=== PATIENT | female | born 2000 | race African-American/Black ===

== ENCOUNTER 2020-02-18 09:07 | Emergency (ER) | payer OTHER, SELFPAY ==
--- NOTE | ~2020-02-18 | CT_ITS ---
EXAMINATION: CT abdomen pelvis w con DATE: 02/18/2020 13:06 INDICATION: Epigastric abdominal pain. TECHNIQUE: Computed tomography (CT) of the abdomen and pelvis was performed with 100 mL Omnipaque 350 intravenous contrast. Automated exposure control and iterative reconstruction technique were employe d. The dose-length product was 196.72 mGy-cm. COMPARISON: None. FINDINGS: The visualized portions of the lung bases are clear without pneumonia or pleural effusion. The heart size is normal. No pericardial effusion. The liver, gallbladder, spleen, pancreas, adrenal glands, and kidneys are normal. There are no dilated loops of bowel. The appendix is normal. There ar e no pathologically enlarged lymph nodes. There is no free intraperitoneal fluid. The bones are unrem arkable. IMPRESSION: 1. No etiology for the patient's symptoms. Reviewed, dictated and finalized at location A. ING CLERK
[2020-02-18 09:27] VITALS: BP 110/73; PULSE 110; RESP 16; TEMP 37.5; O2SAT 100
--- NOTE | 2020-02-18 09:35 | ED.ABDPAIN ---
HPI - Abdominal Pain General Chief Complaint: Unspecified Stated Complaint: sent by urgent care, rib pain Time Seen by Provider: 02/18/20 09:10 Source: patient and family Mode of arrival: ambulatory Limitations: no limitations History of Present Illness HPI narrative: Patient is a 19-year-old female who presents to emergency department for evaluation of epigastric abdominal pain for 3 days that has gradually worsened to include the right upper abdomen and epigastrium patient denies nausea fever chills patient was seen at urgent care referred to emergency department for further evaluation. Patient denies any URI symptoms sick contacts urinary symptoms vaginal discharge Related Data Home Medications Medication Instructions Recorded Confirmed lisdexamfetamine [Vyvanse] mg 02/18/20 Allergies Allergy/AdvReac Type Severity Reaction Status Date / Time No Known Allergies Allergy Verified 02/18/20 09:20 Review of Systems Review of Systems: All systems reviewed & are unremarkable except as noted in HPI and below PMFSH Social History Social History (Updated 02/18/20 @ 09:37 by Francisco Lau PA-C) Smoking status: Never smoker Gender identity (if verbalized by the patient): Female Exam Narrative: Exam Narrative: GENERAL: Well-appearing, well-nourished, and in no acute distress. HEAD: Normocephalic, atraumatic. EYES: PERRLA and EOMI. ENT: Nares clear, no rhinorrhea or epistaxis. Mucous membranes moist. NECK: Supple. No adenopathy or masses. CHEST: Clear to auscultation. No respiratory distress. No wheezes rales or rhonchi HEART: Regular rate and rhythm. No murmur heard. Normal peripheral pulses. ABDOMEN: Soft, epigastric tenderness to palpation remainder of abdomen nontender no rebound or guarding, nondistended EXTREMITIES: Normal range of motion. No edema. SKIN: Warm, dry, no rash. NEURO: No focal deficits. Alert and oriented x3. PSYCH: Normal mood and affect. Course GENERAL ASSIGNMENT REPORTER/PA Physician Supervision Patient evaluated on to have likely GI upset will be put on a antiacid with follow-up with GI for consideration EGD patient given reasons to return ABCs intact hemodynamically stable in no distress Reevaluation(s) Reevaluation #1: Patient in the room at this time noting that she continues to have 10 out of 10 pain of the abdomen will have a CAT scan to rule out more serious etiology for her symptoms at this time patient aware of this Date: 02/18/20 Time: 12:13 Vital Signs Vital signs: Vital Signs Temperature 99.5 F 02/18/20 09:27 Pulse Rate 110 H 02/18/20 09:27 Respiratory Rate 16 02/18/20 09:27 Blood Pressure 110/73 02/18/20 09:27 Pulse Oximetry 100 02/18/20 09:27 Temperature 99.5 F 02/18/20 09:27 Pulse Rate 97 02/18/20 12:08 Respiratory Rate 14 02/18/20 12:08 Blood Pressure 128/84 02/18/20 12:08 Pulse Oximetry 94 02/18/20 12:08 MDM - Abdominal Pain MDM Narrative Medical decision making narrative: Patient in the room in no distress aware of case findings treatment plan diagnosis will be discharged back to primary care with gastroenterology referral afebrile nontoxic-appearing no distress will be placed on an antiacid with likely gastritis or GI upset given dietary instructions provided with reasons to return Lab Data Result diagrams: 02/18/20 10:02 02/18/20 10:02 Labs: Lab Results 02/18/20 02/18/20 02/18/20 Range/Units 10:02 10:02 11:03 WBC 12.2 H (4.5-10.0) K/mm3 RBC 3.95 L (4.2-5.4) M/mm3 Hgb 9.8 L (12.0-15.0) g/dL Hct 31.4 L (37.0-47.0) % MCV 79.5 L (80-100) fl MCH 24.8 L (26-34) pg MCHC 31.2 L (32-36) g/dl RDW 15.4 H (11.5-14.5) % Plt Count 328 (150-375) k/mm3 MPV 9.0 (7.4-10.4) fl Immature Gran % (Auto) 0.5 (0-0.5) % Neut % (Auto) 85.2 H (45.5-73.1) % Lymph % (Auto) 6.2 L (18.3-44.2) % Drew % (Auto) 7.9 (2.6-8.5) % Eos % (Auto) 0.0 (0-4.4) % Baso % (Auto)
[2020-02-18] MEDS: LIDOCAINE HCL 2% VISC SOLN 15 ML UDC 20 ML PO (10:02)
[2020-02-18] MEDS: SODIUM CHLORIDE 0.9% IV 1,000 ML 999 ML IV CONT ×2 (10:02→13:23)
[2020-02-18] MEDS: FAMOTIDINE 20 MG/2 ML VIAL IV PUSH (10:03)
[2020-02-18] MEDS: MAG HYDROX/AL HYDROX/SIMETH 30 ML UDC PO (10:03)
[2020-02-18 10:13] LABS: Basophils Percent Auto 0.2 % (0.2-1.2); Hematocrit 31.4 % (37.0-47.0); Hemoglobin 9.8 g/dL (12.0-15.0); Immature Granulocyte Absolute 0.06 K/mm3 (0.00-0.031); Immature Granulocyte Percent A 0.5 % (0-0.5); Lymphocytes Absolute Auto 0.76 K/mm3 (0.9-3.2); Lymphocytes Percent Auto 6.2 % (18.3-44.2); Mean Corpuscular HGB Conc 31.2 g/dl (32-36); Mean Corpuscular Hemoglobin 24.8 pg (26-34); Mean Corpuscular Volume 79.5 fl (80-100); Monocytes Percent Auto 7.9 % (2.6-8.5); Neutrophils Absolute Auto 10.4 K/mm3 (1.3-6.7); Neutrophils Percent Auto 85.2 % (45.5-73.1); Platelet Count Result 328 k/mm3 (150-375); Red Blood Count 3.95 M/mm3 (4.2-5.4); Red Cell Distribution Width 15.4 % (11.5-14.5); White Blood Count 12.2 K/mm3 (4.5-10.0)
--- NOTE | 2020-02-18 10:15 | PC.NURSE ---
PT UNABLE TO PROVIDE URINE SAMPLE AT THIS TIME, ALERT AND REFUSING STRAIGHT CATH, WILL ATTEMPT MACIE.
[2020-02-18 10:25] LABS: Alanine Aminotransferase 7 U/L (4-35); Alkaline Phosphatase 107 U/L (45-116); Anion Gap 5 mmol/L (8-16); Aspartate Amino Transferase 25 U/L (14-36); Blood Urea Nitrogen 6 mg/dL (8-21); Calcium 9.1 mg/dL (8.9-10.7); Carbon Dioxide 30 mmol/L (22-30); Chloride 100 mmol/L (98-107); Estimated CRCL calculation 101 ml/min; Estimated Glomerular Filt Rate > 60; Glucose 100 mg/dL (65-105); Lipase 30 U/L (23-300); Potassium 3.6 mmol/L (3.4-5.0); Sodium 135 mmol/L (134-143)
[2020-02-18 11:15] LABS: Add Urine Microscopic? YES; Appearance Urine Clear (Clear); Bacteria Urine Trace /hpf; Bilirubin Urine Negative (Negative); Blood Urine 3+ (Negative); Color Urine Yellow (Yellow); Glucose Urine UA Negative (Negative); Ketones Urine 1+ mg/dL (Negative); Leukocyte Esterase Ur Negative LEU/UL (Negative); Mucus Urine Rare /lpf; Nitrate Urine Negative (Negative); Protein Urine Negative (Negative); RBC Urine >75 /hpf (0-2); Squamous Epithelial Cell Urine Occasional /hpf (Few); Urobilinogen Urine Negative mg/dL (<2.0)
[2020-02-18 11:19] VITALS: BP 118/75; PULSE 89; RESP 16; O2SAT 100
[2020-02-18 12:08] VITALS: BP 128/84; PULSE 97; RESP 14; O2SAT 94
[2020-02-18 13:46] VITALS: BP 118/65; PULSE 72; RESP 16; O2SAT 100
== END 2020-02-18 13:46 | disposition home or self-care (01) ==
PROVIDERS: Emergency Medicine Emergency Medical Services; Emergency Provider Emergency Medicine; PCP Pediatrics
DX: R10.13 Epigastric pain (principal)
CPT/HCPCS: 36415; 74177; 80053; 81001; 81025; 83690; 85025; 96361; 96365; 96375; 99284; A9270; J0131; J7030; Q9967

== ENCOUNTER → 2020-05-15 00:05 | Outpatient (CLI) | payer OTHER, SELFPAY ==
[2020-05-15 18:59] LABS: SARS-CoV-2 RNA PCR Negative
== END ==
PROVIDERS: PCP Pediatrics; Visit Provider Internal Medicine Gastroenterology
DX: Z01.812 Encounter for preprocedural laboratory examination (principal); Z20.822 Contact with and (suspected) exposure to COVID-19
CPT/HCPCS: C9803; U0003; U0005

== ENCOUNTER 2020-05-18 00:58 | Day surgery (SDC) | payer OTHER, SELFPAY ==
[2020-05-08 10:07] VITALS: BMI 18.9
[2020-05-18 09:03] VITALS: BP 108/77; PULSE 77; RESP 16; TEMP 36.2; O2SAT 100; BMI 19.5
--- NOTE | 2020-05-18 09:12 | WPDANESEPPF ---
Anes - Initial Pre Proc Eval Procedure: Operation Date: 05/18/20 10:00 Proposed Procedures p Esophagogastroduodenoscopy & Colonoscopy - Jhonny Jiang MD Date/Time: 05/18/20 09:12 Surgeon: Jhonny Jiang MD Pre Op Diagnosis: Abdominal Pain, TYREL Patient Data Age: 20 Gender: F Height: 5 ft 3 in Weight: 50.1 kg Last Vital Signs Temp 97.2 F L 05/18/20 09:03 Pulse 77 05/18/20 09:03 Resp 16 05/18/20 09:03 BP 108/77 05/18/20 09:03 Pulse Ox 100 05/18/20 09:03 Allergies Allergy/AdvReac Type Severity Reaction Status Date / Time No Known Allergies Allergy Verified 05/18/20 09:02 Home Medications Medication Instructions Recorded Confirmed Type lisdexamfetamine [Vyvanse] 40 mg PO DAILY 02/18/20 05/08/20 History sodium,potassium,mag sulfates 17.5 See Rx Instructions PO .COMPLEX 04/20/20 Rx gram-3.13 gram-1.6 gram oral soln #354 ml Patient hx anesthesia problems: none Family hx anesthesia problems: none PMFSH Past Medical History Medical History (Updated 05/18/20 @ 09:12 by Hugo Estrada MD) ADHD Anxiety Microcytic anemia Social History Social History (Updated 03/30/20 @ 14:31 by Aishwarya Ley CMA) Smoking status: Never smoker Alcohol intake: never Substance use: former Substance use type: marijuana Living arrangements: with family Gender identity (if verbalized by the patient): Female Spiritual care concerns: No Anes - Eval Final PreProcedure Day of Procedure 05/18/20 09:12 Patient weight: normal Heart: regular rate and rhythm Lungs: clear to auscultation Airway: Mallampati scale class II Neurological: alert and oriented Last oral intake: >/= 8 hours ASA classification: II Emergent: no Anesthetic plan: proceed Anesthesia type and monitoring: general GIVS and standard monitoring Informed Consent: The patient's anesthetic plan and its attendant risks and benefits were discussed with the patient/family/POA. Questions were solicited and answers provided to the satisfaction of the patient/family/POA.
[2020-05-18] MEDS: LACTATED RINGERS 1,000 ML 150 ML IV CONT (09:16)
--- NOTE | 2020-05-18 09:20 | PM.HPGS ---
History of Present Illness History of Present Illness Consent: Risks, benefits, and alternatives have been discussed and questions answered. Patient agrees to proceed with procedure. Chief complaint: Abdominal Pain, TYREL Narrative: Michelle Redd is a 20 year old female with intermittent abdominal pain, TYREL, CT scan negative, never had scopes. Constipation resolved. Review of Systems Constitutional: Constitutional: Denies headache(s) and Denies weakness Eyes: Eyes: Denies blurry vision ENT: Reports Normal hearing present, Denies headache(s) and Denies neck pain Cardiovascular: Cardiovascular: Denies chest pain and Denies dyspnea Respiratory: Respiratory: Denies dyspnea Gastrointestinal: Gastrointestinal: Reports no additional gastrointestinal complaints Genitourinary: Genitourinary: Denies dysuria Musculoskeletal: Musculoskeletal: Denies neck pain Integumentary/Breasts: Skin/Breast: Denies dry skin Neurologic: Reports Normal hearing present, Denies headache(s) and Denies weakness Psychiatric: Psychiatric: Denies anxiety Endocrine: Endocrine: Denies change in body appearance Hematologic/Lymphatic: Hematologic/Lymphatic: Denies easy bleeding Allergic/Immunologic: Allergic/Immunologic: Denies urticaria PMF Past Medical History Medical History (Updated 05/18/20 @ 09:20 by Jhonny Jiang MD) ADHD Anxiety Microcytic anemia Social History Social History (Updated 03/30/20 @ 14:31 by Aishwarya Ley CMA) Smoking status: Never smoker Alcohol intake: never Substance use: former Substance use type: marijuana Living arrangements: with family Gender identity (if verbalized by the patient): Female Spiritual care concerns: No Meds Home Medications and Allergies Home Medications Medication Instructions Recorded Confirmed Type lisdexamfetamine [Vyvanse] 40 mg PO DAILY 02/18/20 05/08/20 History sodium,potassium,mag sulfates 17.5 See Rx Instructions PO .COMPLEX 04/20/20 Rx gram-3.13 gram-1.6 gram oral soln #354 ml Allergies Allergy/AdvReac Type Severity Reaction Status Date / Time No Known Allergies Allergy Verified 05/18/20 09:02 Vital Signs Vital Signs - 24 hr 05/18/20 09:03 Temperature 97.2 F L Pulse Rate 77 Respiratory Rate 16 Blood Pressure 108/77 Pulse Oximetry 100 Exam Const: General: comfortable and no acute distress HENMT: General nose exam: Normal nares present Eyes: General: appearance normal, both eyes and all related structures Neck: Neck: no JVD Resp: Auscultation: clear to auscultation bilaterally Cardio: Rate: regular rate Rhythm: regular rhythm GI: Inspection: non-distended GI Palp: Yes Soft to palpation Skin: General skin exam: normal color Neuro: General: gait normal Speech: normal speech Extrem: General: normal to inspection Psych: Mental Status: mental status grossly normal Assessment and Plan Assessment and plan (1) Abdominal pain: Code(s): R10.9 - Unspecified abdominal pain Status: Acute Assessment and Plan: egd and colonoscopy (2) Microcytic anemia: Code(s): D50.9 - Iron deficiency anemia, unspecified Status: Acute
[2020-05-18] MEDS: BENZOCAINE (*SP) 60 ML SPRAY CAN (HURRICAINE) 1 SPRAY MUCOUS MEM (09:25)
[2020-05-18 09:54] VITALS: BP 93/65; PULSE 80; RESP 17; O2SAT 100
[2020-05-18 10:04] VITALS: BP 126/98; PULSE 93; RESP 22; O2SAT 100
[2020-05-18 10:14] VITALS: BP 110/71; PULSE 94; RESP 20; O2SAT 100
== END 2020-05-18 10:30 | disposition home or self-care (01) ==
PROVIDERS: PCP Pediatrics; Visit Provider Internal Medicine Gastroenterology
PROC: 0DJ08ZZ Inspection of Upper Intestinal Tract, Via Natural or Artificial Opening Endoscopic (ICD-10-PCS; CPT 43235; principal; 2020-05-18 10:00)
DX: R10.9 Unspecified abdominal pain (principal); K29.50 Unspecified chronic gastritis without bleeding; D50.9 Iron deficiency anemia, unspecified; F90.9 Attention-deficit hyperactivity disorder, unspecified type; F41.9 Anxiety disorder, unspecified; R10.30 Lower abdominal pain, unspecified
CPT/HCPCS: 43239; 45378; 88305; C9803; J2704; J7120; U0003; U0005

== ENCOUNTER 2023-12-11 00:55 | Day surgery (SDC) | payer OTHER, SELFPAY ==
--- NOTE | 2023-12-08 09:03 | PC.NURSE ---
Report to the Outpatient Waiting Room, entrance under the green pavilion located off [facility], at time _10:00am___on date _12/11/23 . Planned Procedure Time: _12:00am .? Time changes happen often and if your time is changed the preop area will call you the afternoon before. - You and your visitor will be asked to self-screen and do not enter if you have any COVID symptoms. Please call surgeon if you need to reschedule. - A mask is optional within the hospital at this time. Patients may have clear liquids (water, carbonated beverages, clear teas, apple juice) until 3 hours prior to surgery with a maximum of 20 ounces. - No food from midnight until time of surgery and no smoking-(0900am) Take only the following medications with a SIP of water on the morning of surgery: ___None DO NOT STOP ANY OF YOUR OTHER PRESCRIPTION MEDICATIONS PRIOR TO SURGERY EXCEPT THE FOLLOWING Medications to discontinue per physician None Please no make-up, nail georgian, hairspray, perfume, deodorant, or body powder the day of surgery.? No jewelry (including any body piercings) or valuables the day of surgery, leave them at home.? Please take a shower or bath the night before, or the morning of, surgery with an antibacterial soap.? Wear comfortable, loose fitting clothing.? - Jewelry must be removed prior to entering the operating room.?Rings and piercings that are not removed may be cut off. - The hospital will not accept responsibility for valuables.? - Please leave all valuables, including medications, at home the day of surgery. If you are going home after surgery, a licensed shuttle van driver must drive you home.? - NO public transportation without another adult if you receive anesthesia. - We recommend that an adult stay with you for 24 hours following discharge. - We also recommend that you do not drive, make important decision, drink alcoholic beverages, or take any drugs that were not prescribed by your health care provider for at least 24 hours after your discharge time. Follow any additional instructions given to you from your surgeon. Telephone instructions given to __patient ____and asked if any additional questions and then verbalized understanding. Patient advised to call surgeon office or pre surgery nurse liaison [phone] if any additional questions.
[2023-12-08 09:05] VITALS: BMI 25.8
--- NOTE | 2023-12-11 08:57 | PM.IMHP ---
H&P: HPI History of Present Illness Date/Time: 12/11/23 08:57 Chief Complaint: Miscarriage Narrative: 23 y/o with LMP 10/12/23, putting her at 8+ weeks gestation. She has had bleeding off and on. Ultrasound exam last week showed an empty gestational sac, despite bhCG of 56,000. Review of Systems Review of Systems: All systems reviewed & are unremarkable except as noted in HPI and below PMFSH Past Medical History Medical History ADHD Anxiety Microcytic anemia Social History Social History Smoking status: Never smoker Alcohol intake: never Substance use: former Substance use type: marijuana Living arrangements: with family Additional living arrangements comments: Aunt Occupation/Education: occupation Gender identity (if verbalized by the patient): Female Spiritual care concerns: No Meds Home Medications and Allergies Home Medications Medication Instructions Recorded Confirmed Type No Home Medications 12/08/23 12/08/23 History Allergies Allergy/AdvReac Type Severity Reaction Status Date / Time No Known Allergies Allergy Verified 12/11/23 11:09 Exam Const: Orientation/consciousness: patient oriented x3 Other: Well-developed, well-nourished female in no acute distress. Neck: Thyroid: thyroid normal Lymphatic: no lymphadenopathy noted (in neck, axilla or inguinal nodes) Resp: Effort & Inspection: normal respiratory effort Auscultation: clear to auscultation bilaterally Cardio: Rate: regular rate Rhythm: regular rhythm Heart sounds: S1 normal heart sound present and S2 normal heart sound present GI: Other: ABD: Soft, nontender, nondistended. No guarding or rebound tenderness. No hepatosplenomegaly. : General: Yes no CVA tenderness Other: External genitalia: normal female hair distribution, without lesion. Urethral meatus: no lesion, non prolapsed. Bladder: no mass, nontender Vagina: well-estrogenized, without lesion or discharge. No cystocele or rectocele. Cervix: no lesion or discharge. Uterus: small, anteverted, freely mobile, nontender Adnexa: no mass or tenderness. Anus/perineum: no lesions, nontender Back/Spine/Pelvis: Back: no CVA tenderness Skin: General skin exam: normal color and no rashes or lesions noted Neuro: General: patient oriented x3 Extrem: Other: Extremities: nontender with no edema Psych: Mental Status: mental status grossly normal Affect: normal affect Assessment and Plan Assessment and plan (1) Missed ab: Code(s): O02.1 - Missed Status: Acute Assessment and Plan: A: Missed spontaneous . P: Offered expectant management vs. dilation and suction curettage. She prefers the latter. She understands risks of surgery to include risks of anesthesia, risks of pain, infection, bleeding, blood products, thromboembolic phenomena and damage to adjacent structures such as bowel, bladder, ureters, blood vessels and nerves. She understands all these risks and elects to proceed with surgery.
--- NOTE | 2023-12-11 10:38 | WPDANESEPPF ---
Anes - Initial Pre Proc Eval Procedure: Operation Date: 12/11/23 12:00 Proposed Procedures p Suction Dilation and Curettage - Tino Encinas MD Date/Time: 12/11/23 10:38 Surgeon: Tino Encinas MD Pre Op Diagnosis: Missed Ab Patient Data Age: 23 Gender: F Height: 1.57 m Weight: 64 kg Allergies Allergy/AdvReac Type Severity Reaction Status Date / Time No Known Allergies Allergy Verified 12/08/23 09:09 Home Medications Medication Instructions Recorded Confirmed Type No Home Medications 12/08/23 12/08/23 History Patient hx anesthesia problems: none Family hx anesthesia problems: none Results Review: All pre-operative results and documents have been reviewed as part of the pre-operative evaluation. [facility] Past Medical History Medical History ADHD Anxiety Microcytic anemia Social History Social History Smoking status: Never smoker Alcohol intake: never Substance use: former Substance use type: marijuana Living arrangements: with family Additional living arrangements comments: Aunt Occupation/Education: occupation Gender identity (if verbalized by the patient): Female Spiritual care concerns: No Anes - Eval Final PreProcedure Day of Procedure 12/11/23 10:38 Patient weight: normal Heart: regular rate and rhythm Lungs: clear to auscultation Airway: Mallampati scale class 1 Neurological: alert and oriented Last oral intake: >/= 8 hours ASA classification: II Emergent: no Anesthetic plan: proceed Anesthesia type and monitoring: general GIVS and standard monitoring Results Review: All pre-operative results and documents have been reviewed as part of the pre-operative evaluation. Informed Consent: The patient's anesthetic plan and its attendant risks and benefits were discussed with the patient/family/POA. Questions were solicited and answers provided to the satisfaction of the patient/family/POA.
[2023-12-11 11:00] VITALS: BP 107/74; PULSE 84; RESP 14; TEMP 36.4; O2SAT 100
[2023-12-11] MEDS: ACETAMINOPHEN 500 MG TABLET 1000 MG PO (11:00)
[2023-12-11] MEDS: LACTATED RINGERS 1,000 ML 30 ML IV CONT ×2 (11:00→13:00)
--- NOTE | 2023-12-11 12:04 | WPDHPUPDATE1 ---
History and Physical Update Update Date/Time: 12/11/23 12:04 History and Physical has been reviewed, including an updated exam of the patient. There are NO changes in the patient's condition. Risks, benefits, and alternatives have been discussed and questions answered. Patient agrees to proceed with procedure.
[2023-12-11] MEDS: LIDOCAINE HCL 1% LOCAL INJ 20 ML VIAL 10 ML INFILTRATE (12:26)
[2023-12-11 12:36] VITALS: BP 91/49; PULSE 62; RESP 14; O2SAT 100
--- NOTE | 2023-12-11 12:36 | P.OP_ITS ---
Procedure Note - Detailed Date of Procedure 12/11/23 Pre-op Diagnosis Missed Ab Post-op Diagnosis Same Procedure Performed Dilation and suction curettage Surgeon Tino Encinas MD Anesthesia MAC and Local (1% lidocaine ) Findings Products of conception noted Description of Procedure The patient was taken to the operating room where she was prepared and draped in the usual sterile fashion in the dorsal lithotomy position. The bladder was drained with a red rubber catheter. A sterile speculum was placed into the vagina. The anterior lip of the cervix was grasped with a single-tooth tenaculum. Ten mL of 1% lidocaine was administered in a paracervical block. The cervix was gently dilated using Hegar dilators until an 8mm dilator could be passed. The 8mm curved tip suction curette was advanced. Suction curettage was performed and products of conception were aspirated. Sharp curettage was then performed until a good uterine cry was noted. A final pass with the suction curette was made. The tenaculum was removed. Hemostasis was excellent. Sp onge, lap, needle and instrument counts were correct. The patient was taken to the recovery room in stable condition. I was present and scrubbed for the entire procedure. Implants None Estimated Blood Loss 100 Drains No Packing No Pathology Yes (Endometrial curettings) Complications None Condition Stable Disposition PACU
[2023-12-11 13:00] VITALS: BP 91/56; PULSE 62; RESP 16; O2SAT 100
[2023-12-11 13:30] VITALS: BP 101/82; PULSE 74; RESP 14
== END 2023-12-11 13:55 | disposition home or self-care (01) ==
PROVIDERS: Visit Provider Obstetrics & Gynecology
PROC: (CPT 59820; principal; 2023-12-11 12:00)
DX: O02.1 Missed abortion (principal); F90.9 Attention-deficit hyperactivity disorder, unspecified type; F41.9 Anxiety disorder, unspecified; G89.18 Other acute postprocedural pain; D50.9 Iron deficiency anemia, unspecified; F12.90 Cannabis use, unspecified, uncomplicated
CPT/HCPCS: 59820; 36415; 85461; 86850; 86900; 86901; 88305; A9270; J1100; J2003; J2250; J2405; J2704; J3010; J7120